=== PATIENT | female | born 1950 | race Two or more races ===

== ENCOUNTER 2022-01-11 14:24 | Emergency (ER) | payer OTHER ==
[~2022-01-11] VITALS: Ht 160 cm; Wt 60.8 kg
--- NOTE | 2022-01-11 15:20 | NUR ---
Medical clearance for voluntary admission to [facility]. Placed comfortably in bed. Vitals checked.
--- NOTE | 2022-01-11 16:51 | NUR ---
SS Consult: SS Consult requested for homelessness, & requesting voluntary psych placement. The pt. is a 71 -year old Black female patient who presented to the ED due AH and paranoia. Upon SS consult, the pt. is Alert & Oriented x 4 and makes goodeye contact. The pt. appears well-groomed. Pt.'s speech is clear and has depressed mood and flat affect. GETACHEW explored pt.'s living situation. Per pt. she left her home [[address] [facility] [address]] yesterday after she began having AH tellign her that her mother and brother that she lives with want to destroy her". Per pt. she packed soem of her things and went to [facility]. Per pt. she is requesting voluntary psych admission to [facility] [place] [address] ]. GETACHEW explored pt.'s drug & ETOH use. Pt. denies drug or alcohol use. SW explored pt.'s mental health Hx. Pt. states she has been diagnosed with Paranoid Schizophrenia and stopped takign her abilify about 4 months ago. Pt. denies current SI/HI and denies visual hallucinations. Per pt., he is currently ambulatory & independent with all her ADL's. SW explored pt.'s support system. Pt. states her family was her support. Pt. states her PCP is Dr. Varghese [phone]. Plan: Pt. has already been referred to [facility] [[address] [place] [address] FAX:[phone]] for inpatient psychiatric treatment. Pt. SW provided pt. with homeless resources and pt. accepted them. Pt. to signed homeless waiver upon discharge . Year-round shelters: [facility] [address] [place] [address] ; [facility] [address] [place] [address]; [facility] [id number] [facility]. [facility] [address] Winter Shelters: SPA 2 | [facility] Irina: [facility] Address: Confidential (call for location ) Population Served: Coed # of Beds: 57 SPA 4 | [facility] Provider: Home at Last Address: [address] [facility], [address] # of Beds: 49 Population Served: Coed SPA 6 | [facility] Provider: Home at Last Address: [address] [facility], [address] # of Beds: 49 Population Served: Coed [facility] Provider: David Marmolejo [facility] Address: [address] [facility] [address] # of Beds: 20 Population Served: Women [facility] Facility Provider: Home at Last Address: [address] [facility] [address] # of Beds: 30 Population Served: Women SPA 8 | [facility] Provider: Ari mcmullen Zonia Address: [address] [facility] [address] # of Beds: 65 Population Served: Coed Hygiene: [facility]: [address] [facility] ; [facility] [address] [facility] ; [facility] [address] [facility] . Food Resources: [place] [facility] at [facility]- [address] [facility]; Meet Each Need with Dignity ([facility]) [address] [facility]; [facility] Food Pantry [address] [facility]; [facility] [address] [facility]. Mental Health resources provided: [facility] [address] [place] [address] ; [facility] [place] [address] [facility] [address], [place] [address] ; [facility] [address] [place] [address] ; [facility] [address] [place] [address] Healthcare Clinics: [facility] [address] M[address]ra [facility], [address] [place]. [place] ; [facility] [address] [facility] [address] [place] [address]; [facility] [address] [place] [address] [phone]) [phone] Counseling--Outpatient [facility] [address] [facility], [place] [address] (Specializes in in-depth psychotherapy for emotional distress: anxiety, depression, interpersonal conflicts, life transitions, childhood abuse) [facility] Guidance Center [address] [place] [address] (Assist with solving problem marital difficulties, separation & divorce, aging parents, & grief, chronic & terminal illness) [facility] [address] [place] [address] (Deal with loss & grief, anxiety, marital difficulties) Homebound/Mental Health Services [address] [facility], [address] [place] [address] (Provide in-home mental services to people who are incapable of leaving their homes) [facility] Elder[facility] Senior Service/Resource Center [address] [place] [address] [facility] [address] [place] [address] PSYCHIATRIC OUTPATIENT SERVICES [facility] Partial Hospitalization and Intensive Outpatient Program (Managed Care and [place] Only)[address] [address]. [facility] [phone] [facility] Partial Hospitalization and Outpatient Hqykvii474[address] [facility]. [address] [place], [place] [phone] [facility] [place] Ieh84856 Lani [facility]. [address] [facility], [place] [phone] [facility] Aida Partial Hospitalization and Outpatient [id number] Akbar Almendarez, [phone] Substance Abuse resources provided included: [facility] Substance Abuse Self-Helpline ([facility]) ; CRI [facility]LP [address] [facility] [place] [address] ; [facility] [address] [facility] [address] ; [facility] Rehabilitation Program [address] [facility] [address] ; [facility] [address] [facility] [phone] ; [facility] [address] [facility] [address] ; Vandana [facility] [address] [facility] [phone] ; [facility] Substance Abuse Helpline([facility] ; [facility] ; [facility] [place]; [facility] [place]; C[facility] [place]; [facility] Mk Parra; [facility]; [place] [facility]; [facility], [facility]. [place]; Alcoholics Anonymous -SFV; Si-Wmga-Ahqqkxx ; Marijuana Anonymous -SFV; Narcotics Anonymous www.na.org;
--- NOTE | 2022-01-11 16:57 | NUR ---
URINE SAMPLE SENT TO LAB
--- NOTE | 2022-01-11 17:09 | NUR ---
PT CLAIMED THAT SHE CAN HEAR VOICES AND TELLING HER WHAT TO DO. SHE WAS OVERWHELMED. SHE DECIDED TO SEEK MEDICAL HELP.
--- NOTE | 2022-01-11 17:10 | NUR ---
CALLED [employer] TO ORDER VEGETARIAN FOOD FOR PATIENT
--- NOTE | 2022-01-12 07:46 | NUR ---
BREAKFAST PROVIDED, TOLERATED WELL
--- NOTE | 2022-01-12 09:07 | NUR ---
MARQUISE GRAYSON WILL FOLLOW UP WITH [facility].
[2022-01-12] MEDS ORDERED: ARIPIPRAZOLE 5 MG TABLET PO ONE (10:00)
--- NOTE | 2022-01-12 10:00 | NUR ---
PACKAGE CRIMPER KEILA RIVERA AND GETACHEW LOVE AT BEDSIDE
--- NOTE | 2022-01-12 10:23 | NUR ---
P[facility]LO [facility] [phone]
--- NOTE | 2022-01-12 10:36 | NUR ---
GETACHEW LOVE SPOKE TO PT BROTHER RE CHIEF SPECIALIST LEED, BROTHER WILL BACK FOR ETA
--- NOTE | 2022-01-12 10:39 | NUR ---
PER GETACHEW LOVE, BROTHER WILL COME AT 12NOON TO DEMAND EQUIPMENT REPAIRER PATIENT
--- NOTE | 2022-01-12 11:00 | NUR ---
SS Note: SW followed-up with pt. and provided resources. Pt. is alert and oriented x3. Pt. denies suicidal ideation and homicidal ideation. SW spoke with pt.'s brother Valdez Macdonald [[phone]] and he stated that he will pick her up at noon. SW provided pt. with [facility] for walk-ins [ [address] [place] [address]]. Pt. refused resources, SW left resources at bedside. SW mentioned that pt. must have her health plan connect her with a hospital for pt. to be admitted to psych. Hospital. Pt. expressed understanding but was uncooperative.
--- NOTE | 2022-01-12 12:06 | NUR ---
Update: SW spoke with brother and he is on his way. ETA: 12:45
--- NOTE | 2022-01-12 12:31 | NUR ---
Brother called GETACHEW. He stated that he is running late. ETA: [phone]
--- NOTE | 2022-01-12 13:11 | NUR ---
BROTHER AT BEDSIDE FOR ROAD TRAFFIC CONTROLLER.
--- NOTE | 2022-01-12 13:20 | NUR ---
Patient discharged to home in stable condition. Written and verbal after care instructions given. Patient verbalizes understanding of instruction.
[2022-01-12 13:24] VITALS: BP 124/69
== END 2022-01-12 13:25 | disposition home or self-care (01) ==
LOC: ER 15:21
DX: Z04.6 Encounter for general psychiatric examination, requested by authority (principal); F32.A Depression, unspecified